=== PATIENT | female | born 1980 | race Caucasian/White ===

== ENCOUNTER 2020-06-20 11:36 | Emergency (ER) | payer OTHER ==
[~2020-06-20] VITALS: Ht 127 cm; Wt 72.8 kg
[~2020-06-20 11:36] MED LIST: CETI10TA76 PO; DESO1TAB66 PO
--- NOTE | 2020-06-20 12:14 | NUR ---
Pt brought back from triage with chief complaint of- CHILLS, NAUSEA, HEADACHE STARTING LAST. DENIES FEVERS OR COUGH. DENIES SOB. WAS SEEN AT FOR HIGH BLOOD PRESSURE AND SENT HERE.
--- NOTE | 2020-06-20 12:18 | NUR ---
ERMD AT BEDSIDE FRO EVALUATION.
[2020-06-20 12:28] LABS: BASOPHILS % (AUTO) 1 % (0-1); EOSINOPHILS % (AUTO) 1 % (1-7); LYMPHOCYTES % (AUTO) 33 % (22-44); MEAN CORPUSCULAR HEMOGLOBIN 32.3 pg (27.0-34.8); MEAN CORPUSCULAR HGB CONC 33.4 g/dL (32.4-35.8); MEAN PLATELET VOLUME 8.4 fL (7.4-10.4); MONOCYTES % (AUTO) 5 % (2-9); NEUTROPHILS % (AUTO) 60 % (42-75); PLATELET COUNT 305 x10^3/uL (130-400); RED CELL DISTRIBUTION WIDTH 12.6 % (9.6-15.2)
[2020-06-20 12:40] LABS: ANION GAP 6 mmol/L (5-15); CALCIUM 8.7 mg/dL (8.5-10.1); CHLORIDE 108 mmol/L (98-107)
[2020-06-20 12:45] LABS: MD NO
--- NOTE | 2020-06-20 13:13 | NUR ---
PT RESTING IN BED, CALL LIGHT IN REACH.
[2020-06-20 13:23] VITALS: BP 138/86
--- NOTE | 2020-06-20 13:46 | NUR ---
ERMD AT BEDSIDE TO DICUSS POC.
--- NOTE | 2020-06-20 13:55 | NUR ---
DISCHARGE INSTRUCTIONS REVIEWED
== END 2020-06-20 13:57 | disposition home or self-care (01) ==
LOC: ED 13:55
DX: I10 Essential (primary) hypertension (principal); Z20.828 Contact with and (suspected) exposure to other viral communicable diseases; R07.9 Chest pain, unspecified
CPT/HCPCS: 36415; 71045; 80048; 82040; 85025; 87635; 93005; 99285